=== PATIENT | female | born 1950 | race Caucasian/White ===

== ENCOUNTER 2019-10-10 11:10 | Outpatient (CLI) | payer MEDICARE, SELFPAY ==
--- NOTE | ~2019-10-10 | US_ITS ---
EXAMINATION: US soft tissue abdomen EXAM DATE: 10/10/2019 11:46 INDICATION: Hernia 2014. Soft tissue swelling, lump left supraumbilical region. TECHNIQUE: Multiple grayscale and Doppler images of the symptomatic anterior supraumbilical region we re obtained (by a technologist who performed the scan) and subsequently reviewed. Correlation is made to CT 10/11/18. FINDINGS: Scanning in the left supraumbilical region area of concern demonstrated no focal mass or abdominal wa ll defect. No hernia was identified on CT scan last year. No evidence of encapsulated lipoma. Abdomin al wall is unremarkable. IMPRESSION: 1. Unremarkable ultrasound exam. Reviewed, dictated and finalized at location A.
== END 2019-10-10 11:11 | disposition home or self-care (01) ==
PROVIDERS: PCP Nurse Practitioner Adult Health; Visit Provider Nurse Practitioner Adult Health
DX: R22.2 Localized swelling, mass and lump, trunk (principal)
CPT/HCPCS: 76705

== ENCOUNTER 2020-03-12 11:22 | Outpatient (CLI) | payer MEDICARE, SELFPAY ==
--- NOTE | ~2020-03-12 | XR_ITS ---
EXAMINATION: XR shoulder RT min 2V DATE: 03/12/2020 11:50 INDICATION: Right shoulder pain. TECHNIQUE: 4 views of right shoulder were obtained. COMPARISON: None. FINDINGS: Bone alignment is normal. No fracture. There is mild osteoarthritis of glenohumeral joint a nd acromioclavicular joint. IMPRESSION: 1. Mild polyarticular osteoarthritis. Reviewed, dictated and finalized at location A. ERY TECHNICIAN
== END 2020-03-12 11:23 | disposition home or self-care (01) ==
PROVIDERS: PCP Nurse Practitioner Adult Health; Visit Provider Nurse Practitioner Adult Health
DX: M19.011 Primary osteoarthritis, right shoulder (principal)
CPT/HCPCS: 73030

== ENCOUNTER 2020-07-25 08:30 | Outpatient (RCR) | payer MEDICARE, SELFPAY ==
[2020-06-06 12:29] VITALS: BP_SYST 170
--- NOTE | 2020-06-06 13:38 | PTOPEVAL ---
Thank you for referring Dulce Maria Quiros to [facility].? The patient is scheduled to be seen for therapy? 2 x/week for 6 weeks. Please review, sign, date and return this plan of care SUE. I agree with and certify that the following plan of care is medically necessary. Referring Physician Date Attending Provider: Parish Castro, Referring Provider: Parish Castro, *PT Outpatient Evaluation Start: 06/06/20 12:31 Freq: Status: Active Protocol: Document 06/06/20 12:29 DORI (Rec: 06/06/20 13:38 CAP [id number]) Therapy Assessment Status Assessment Status Assessment Status Evaluation Outpatient Past Medical History Past Medical History Source of Past Medical History Patient,Recalled from Previous Visit, Confirmed with Patient /Family Cardiovascular History Hx Hypertension Yes Respiratory History Hx Other Respiratory Disorders Yes: COVID Feb 2020 Genitourinary History Hx Kidney Stones Yes Musculoskeletal History Hx Back Pain Yes Hx Orthopedic Surgery Yes: [facility], left knee arthroscopic surgery Hx Osteoporosis Yes Endocrine History Hx Other Endocrine Disorders Yes: hyperglycemia Psychosocial History Hx Anxiety Yes Evaluation Information Problem Diagnosis right shoulder pain Onset Jan 2020 Cause unknown Additional Evaluation Detail previous treatment for left shoulder and neck- 3 yrs ago. Received therapy Subjective Information C/o right shoulder joint pain, Query Text:As Reported By Patient/ muscle pain, ache pain in the Family elbow. She reports her right hand will also have numbness when sleeping. She painted 3 rooms plus ceilings this summer. She applies heat at night to help her sleep. She reports limitations with reaching in all directions, IADL's, carrying activities and fine motor activities with the right UE. She has trouble with all aerospace mechanic. She is unable to paint her carias or manage a hammer as needed. She does assist with yardwork. She does not perform the
--- NOTE | 2020-07-04 09:25 | PTOPEVAL ---
Thank you for referring Dulce Maria Quiros to [facility].? Pt has been seen for 8 therapy visit to address right shoulder impairments. She is progressing towards her therapy goals with improved UE function, strength and range. She requires additional therapy 2x/wk x 3 additional wk to reach maximal potential. Please review, sign, date and return this plan of care SUE. I agree with and certify that the following plan of care is medically necessary. Referring Physician Date Attending Provider: Parish Castro, Referring Provider: Parish Castro, Physical Therapy progress note Problem Diagnosis right shoulder pain Onset Jan 2020 Cause unknown Additional Evaluation Detail previous treatment for left shoulder and neck- 3 yrs ago. Received therapy Subjective Information Reports the right shoulder Query Text:As Reported By Patient/ joint and muscle pain has Family improved. She continues to have soreness with increased activities or at the end of the day. Denies any right hand will also have numbness when sleeping, but some acheness at night. She is more aware of her posture and shoulder position with activities. She denies limitations with reaching in all directions for facility manager. But cont pain with donning clothes. Denies pain with overhead activities for ADL's. Cont pain with reaching act with exercise videos. 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 Pain Assessment Right Shoulder(s) Reported Pain Level 1 Pain Description Aching Pain Frequency Intermittent Lowest Pain Intensity 0 Greatest Pain Intensity 1 Pain Aggravating Factors ADL's,Exercise/Activity, Lifting Upper Extremity Range of Motion Left Shoulder Flexion - Active 170 Shoulder Extension - Active 50 Shoulder Abduction - Active 170 Shoulder Medial Rotation - Active T7 Query Text:Reach Behind the Back Shoulder Lateral Rotation - Active T2 Query Text:Reach Behind the Head Right Scapular: Retraction Hypomobile Scapular: Protraction Hypomobile Scapular Downward Rotation Hypomobile Scapular Upward Rotation
--- NOTE | 2020-07-25 09:10 | PTOPEVAL ---
Thank you for referring Dulce Maria Quiros to [facility].? Patient has received 14 therapy visit to address her right shoulder impairments. She has achieved her therapy goals a this time and is indep with her home program. Will D/C skilled therapy services at this time. Please review, sign, date and return this discharge SUE. I agree with and certify that the following plan of care is medically necessary. Referring Physician Date Attending Provider: Parish Castro, Referring Provider: Parish Castro, Physical Therapy Discharge Note Diagnosis right shoulder pain Onset Jan 2020 Cause unknown Additional Evaluation Detail previous treatment for left shoulder and neck- 3 yrs ago. Received therapy Subjective Information Reports the right shoulder Query Text:As Reported By Patient/ joint and muscle pain has Family improved. She denies any pain of the shoulder at rest and with activties. She is consistently performing her home program. Denies any problems with sleeping, reaching, carrying activities. She is able to tolerate overhead activities without limitations but only a small amout of stiffness. Denies any problems with ADL's or carrying objects. Pain Assessment Self Report Self Report Pain Level 0 Pain Score Pain Score 0: Self Report Upper Extremity Range of Motion Scapular/ Shoulder Range of Motion Left Shoulder Flexion - Active 175 Shoulder Extension - Active 60 Shoulder Abduction - Active 175 Shoulder Medial Rotation - Active T6 Query Text:Reach Behind the Back Shoulder Lateral Rotation - Active T2 Query Text:Reach Behind the Head Right Scapular: Retraction Hypomobile Scapular: Protraction Hypomobile Scapular Downward Rotation Hypomobile Scapular Upward Rotation Hypomobile Shoulder Flexion - Active 176 Shoulder Extension - Active 45 Shoulder Abduction - Active 170 Shoulder Medial Rotation - Active 85 Shoulder Medial Rotation - Active T7 Query Text:Reach Behind the Back Shoulder Lateral Rotation - Active 90 Shoulder Lateral Rotation - Active T2 Query Text:Reach Behind the Head Scapular/Shoulder Range of Motion inconsistent pain and soreness Comments of deltoid region with flex and abd Upper Extremity Muscle Strength Testing Scapular/Shoulder Left Scapular Retraction - Middle Trapezius 4
== END 2020-07-25 10:20 | disposition home or self-care (01) ==
LOC: ANHPT 08:30
PROVIDERS: PCP Nurse Practitioner Adult Health; Referring Provider Family Medicine; Visit Provider Family Medicine
DX: M25.511 Pain in right shoulder (principal)
CPT/HCPCS: 97110; 97140; 97162; 97530

== ENCOUNTER 2020-09-24 12:07 | Emergency (ER) | payer MEDICARE, SELFPAY ==
--- NOTE | ~2020-09-24 | XR_ITS ---
EXAMINATION: XR knee RT min 4V EXAM DATE: 09/24/2020 13:21 INDICATION: Right knee pain posteriorly, no known recent injury. TECHNIQUE: Right knee frontal, crosstable lateral, orthogonal oblique projections for interpretation . There is no prior study for comparison. FINDINGS: No evidence osteochondral defect or joint body in the right knee joint. There are no acut e fractures or dislocations identified. There is no subcutaneous gas. There is possible Esqueda's cyst . Small to moderate-sized joint effusion. There are no radiopaque foreign bodies. Mild to moderate tricompartmental primary osteoarthritis. IMPRESSION: 1. Right knee exam without acute osseous findings. 2. Small to moderate joint effusion. 3. Possible Esqueda's cyst. 4. Mild to moderate osteoarthritis. Reviewed, dictated and finalized at location A.
[2020-09-24 12:15] VITALS: BP 180/80; PULSE 75; RESP 16; TEMP 36.3; O2SAT 100
--- NOTE | 2020-09-24 13:39 | ED.GENADULT ---
HPI - General Adult General Chief complaint: Extremity Injury, Lower Stated complaint: right knee pain/swelling Source: patient Mode of arrival: ambulatory Limitations: no limitations History of Present Illness HPI narrative: This is a 70-year-old female who presents with complaints of right knee pain. She is a very poor historian. States she has a history of arthritis in both knees and previously underwent arthroscopic surgery in the left knee in the past per Dr. Ga. It sounds like she has some chronic bilateral knee pain but noted worsening pain in the past three days. She states she has been going up and down a ladder but cannot identify any recent injury. She states pain is constant, 9/10 in severity and without descriptive quality. Pain is in the anterior and posterior aspect of the knee. She also reports a tightness in the anterolateral aspect of the right lower leg. In the past she has some CAT scan her abdomen pelvis and there was a concern for DVT in the gonadal vein. She was started on Xarelto and vascular evaluated her. She had an MRI/MRA at [facility] which was negative for thrombosis. Therefore anticoagulation was discontinued. She reports decreased range of motion in the right knee. She has been using a cane to ambulate. She tried taking ibuprofen 800mg without much improvement in her symptoms thereafter. Related Data Home Medications Medication Instructions Recorded Confirmed diclofenac sodium 1 g TOPICAL QID 09/24/20 09/24/20 fluoxetine 1 mg PO DAILY 09/24/20 09/24/20 lorazepam 1 mg PO BID 09/24/20 09/24/20 quinapril 1 mg PO DAILY 09/24/20 09/24/20 quinapril-hydrochlorothiazide 1 tablet PO DAILY 09/24/20 09/24/20 rosuvastatin 1 mg PO DAILY 09/24/20 09/24/20 Allergies Allergy/AdvReac Type Severity Reaction Status Date / Time niacin Allergy Unknown Verified 09/24/20 12:35 Review of Systems Review of Systems: Narrative: CONSTITUTIONAL: Denies fever, chills, or sweats. EYES: Denies visual changes, redness, or discharge. ENT: Denies rhinorrhea, congestion, sore throat, or otalgia. CARDIOVASCULAR: Denies chest pain, palpitations, or edema. RESPIRATORY: Denies cough or dyspnea. GASTROINTESTINAL: Denies abdominal pain, nausea, vomiting, or diarrhea. GENITOURINARY: Denies dysuria or hematuria. SKIN: Denies rash or itching. MUSCULOSKELETAL: Reports right knee pain, and right calf. Denies back pain. NEUROLOGIC: Denies headache, numbness, dizziness, or weakness. PSYCHIATRIC: Denies anxiety or depression. [facility] Past Medical History Medical History (Updated 09/24/20 @ 14:02 by AMI Hayden, ) Hyperlipidemia Hypertension Surgical History Surgical History S/P arthroscopic surgery of left knee Family History Family History Mother Family history of premature coronary heart disease Hypertension Cerebrovascular accident Family history of Alzheimer's disease Family history of diabetes mellitus in first degree relative Social History Social History Smoking status: Former smoker Alcohol intake: current Gender identity (if verbalized by the patient): Female Exam Narrative: Exam Narrative: GENERAL: Well-appearing, well-nourished, and in no acute distress. HEAD: Normocephalic, atraumatic. EYES: PERRLA and EOMI. ENT: Nares clear, no rhinorrhea or epistaxis. Mucous membranes moist. Oropharynx without tonsillar hypertrophy exudate or other lesions. Bilateral TMs pearly ramos nonbulging NECK: Supple. No adenopathy or masses. No carotid bruits or JVD CHEST: Clear to auscultation. No respiratory distress. No wheezes rales or rhonchi HEART: Regular rate and rhythm. No murmur heard. Normal peripheral pulses. ABDOMEN: Soft, nontender, nondistended, normal active bowel sounds. EXTREMITIES: Decreased active range of catrachito
== END 2020-09-24 14:21 | disposition short-term general hospital (02) ==
PROVIDERS: Emergency Provider Nurse Practitioner; PCP Nurse Practitioner Adult Health
DX: M25.561 Pain in right knee (principal); M25.461 Effusion, right knee; M71.21 Synovial cyst of popliteal space [Baker], right knee; Z87.891 Personal history of nicotine dependence; E78.5 Hyperlipidemia, unspecified; I10 Essential (primary) hypertension
CPT/HCPCS: 73564; 99213; G0463

== ENCOUNTER 2020-09-24 15:01 | Emergency (ER) | payer MEDICARE, SELFPAY ==
--- NOTE | ~2020-09-24 | US_ITS ---
US venous doppler LE RT DATE: 09/24/2020 15:33 INDICATION: Right lower extremity pain TECHNIQUE: Real-time and color flow imaging and Doppler analysis of the veins of the right lower extr emity COMPARISON: None FINDINGS: The right greater saphenous vein is patent. There is spontaneous and phasic flow and normal augmentation and color flow signal and normal compression of the deep veins of the right lower extre mity. There is a 15 x 75 x 62 mm fluid structure at the posterior aspect of the knee, likely a large poplit eal cyst. Differential diagnosis includes hematoma. IMPRESSION: No evidence of deep venous thrombosis of the right lower extremity Probable large Esqueda's cyst or less likely hematoma at posterior aspect of the knee Reviewed, dictated and finalized at Location A. Reviewed, dictated and finalized at location B.
[2020-09-24 15:16] VITALS: BP 206/100; PULSE 80; RESP 18; TEMP 36.7; O2SAT 100
--- NOTE | 2020-09-24 15:22 | ED.EXTPRO ---
HPI - Extremity Problem General Chief complaint: Extremity Problem,Nontraumatic Stated complaint: knee pain possible dvt vs cyst Time Seen by Provider: 09/24/20 15:11 History of Present Illness HPI Narrative: 70 yo female presents from urgent care for knee pain. She reports that she has chronic pain from arthritis. She has been more active recently and the pain has been worse. Yesterday she was walking and she felt a pop in the right knee and the pain again worsened. She was seen at urgent care and had an x-ray showing a cyst. She was sent here for concern about a possible DVT. No CP, SOB. Related Data Home Medications Medication Instructions Recorded Confirmed diclofenac sodium 1 g TOPICAL QID 09/24/20 09/24/20 fluoxetine 1 mg PO DAILY 09/24/20 09/24/20 lorazepam 1 mg PO BID 09/24/20 09/24/20 quinapril 1 mg PO DAILY 09/24/20 09/24/20 quinapril-hydrochlorothiazide 1 tablet PO DAILY 09/24/20 09/24/20 rosuvastatin 1 mg PO DAILY 09/24/20 09/24/20 Allergies Allergy/AdvReac Type Severity Reaction Status Date / Time niacin Allergy Unknown Verified 09/24/20 12:35 Review of Systems Review of Systems: All systems reviewed & are unremarkable except as noted in HPI and below Constitutional: Constitutional: Denies chills and Denies fever(s) Cardiovascular: Cardiovascular: Denies chest pain Respiratory: Respiratory: Denies dyspnea Gastrointestinal: Gastrointestinal: Denies nausea PMFSH Past Medical History Medical History Hyperlipidemia Hypertension Surgical History Surgical History S/P arthroscopic surgery of left knee Family History Family History Mother Family history of premature coronary heart disease Hypertension Cerebrovascular accident Family history of Alzheimer's disease Family history of diabetes mellitus in first degree relative Social History Social History Smoking status: Former smoker Alcohol intake: current Gender identity (if verbalized by the patient): Female Exam Const: General: no acute distress and alert Orientation/consciousness: patient oriented x3 HENMT: Head: normal to inspection Resp: Effort & Inspection: normal respiratory effort Auscultation: clear to auscultation bilaterally Cardio: Rate: regular rate Rhythm: regular rhythm Other: DP 2+ and symetrical Skin: General skin exam: normal color Neuro: General: patient oriented x3 and moves all extremities Speech: normal speech Extrem: Other: moderate swelling to right knee with palpable effusion Course Vital Signs Vital signs: Vital Signs Temperature 36.7 C 09/24/20 15:16 Pulse Rate 80 09/24/20 15:16 Respiratory Rate 18 09/24/20 15:16 Blood Pressure 206/100 H 09/24/20 15:16 Pulse Oximetry 100 09/24/20 15:16 Temperature 36.7 C 09/24/20 15:16 Pulse Rate 80 09/24/20 17:20 Respiratory Rate 18 09/24/20 17:20 Blood Pressure 172/80 H 09/24/20 17:20 Pulse Oximetry 99 09/24/20 17:20 MDM - Extremity (Nontraumatic) MDM Narrative Medical decision making narrative: She has follow up with orhto in a few days. Imaging Data Radiologist's impression: ITS Impressions Venous Doppler Study 09/24/20 15:34 IMPRESSION: No evidence of deep venous thrombosis of the right lower extremity Probable large Esqueda's cyst or less likely hematoma at posterior aspect of the knee Discharge Plan Discharge Clinical Impression: Effusion of knee joint right, Synovial cyst of popliteal space [Esqueda], right knee Patient Disposition: Home, Self-Care Condition: Stable Instructions: Knee Pain (ED) Prescriptions: New tramadol 50 mg tablet 50 mg PO Q6H PRN (Reason: pain) Qty: 15 RF: 0 No Action fluoxetine 40 mg capsule 1 mg PO D
[2020-09-24] MEDS: traMADol HCL (*CRX) 50 MG TABLET PO (17:11)
[2020-09-24 17:20] VITALS: BP 172/80; PULSE 80; RESP 18; O2SAT 99
== END 2020-09-24 17:22 | disposition home or self-care (01) ==
PROVIDERS: Emergency Provider Emergency Medicine; PCP Nurse Practitioner Adult Health
DX: M71.21 Synovial cyst of popliteal space [Baker], right knee (principal); M25.461 Effusion, right knee; M79.661 Pain in right lower leg; E78.5 Hyperlipidemia, unspecified; I10 Essential (primary) hypertension; M19.90 Unspecified osteoarthritis, unspecified site; Z87.891 Personal history of nicotine dependence
CPT/HCPCS: 73564; 93971; 99284; A9270

== ENCOUNTER 2020-10-15 08:19 | Outpatient (CLI) | payer MEDICARE, SELFPAY ==
--- NOTE | ~2020-10-15 | US_ITS ---
US retroperitoneal comp 10/15/2020 08:52 Procedure: Realtime transabdominal ultrasound of the kidneys and bladder. Indication: Hydronephrosis. Comparison: 10/10/2019 Findings: Renal echotexture is normal bilaterally without contour deforming mass or renal calculus. T here is mild left hydronephrosis. The right kidney measures 10.7 cm and left kidney measures 10.3 cm. Bladder within normal limits. Impression: 1: Mild left hydronephrosis. Reviewed, dictated and finalized at location D. Impression: 1: Mild left hydronephrosis.
== END 2020-10-15 08:20 | disposition home or self-care (01) ==
PROVIDERS: PCP Nurse Practitioner Adult Health; Visit Provider Urology
DX: N13.30 Unspecified hydronephrosis (principal)
CPT/HCPCS: 76770

== ENCOUNTER 2020-10-16 12:36 | Outpatient (CLI) | payer MEDICARE, SELFPAY ==
--- NOTE | ~2020-10-16 | NM_ITS ---
EXAMINATION: ALVINO leggett renal scan DATE: 10/16/2020 13:33 INDICATION: Hydronephrosis TECHNIQUE: 7.9 mCi Tc-99m MAG3 was administered IV. 40 mg furosemide was administered IV immediately afterward. The patient was scanned in the supine position. A posterior abdominal radionuclide angiog narinder was obtained. A subsequent time course of static images of the kidneys, ureters, and bladder was obtained. COMPARISON: Ultrasound dated 10/15/2020 FINDINGS: The posterior abdominal radionuclide angiogram and sequential static images show normal size, positio n, and morphology of the kidneys. Peak renal parenchymal uptake was 2.0 min in left kidney and 2.0 mi n in right kidney (normal peak 3-5 minutes). The relative early renal uptake was 45% on the left and 55% on the right (<40% is abnormal). No abnormalities of the ureters or bladder are seen. T1/2 for clearance of activity from the left kidney and proximal collecting system was 5.5 minutes. T1/2 for clearance of activity from the right kidney and proximal collecting system was 6.7 minutes. Notes on interpretation: T1/2 <10 minutes is normal, 10-15 minutes is low grade obstruction of questi onable clinical significance, 15-20 minutes is partial obstruction that is likely clinically signific ant, >20 minutes is high grade obstruction. Note that false positives may be seen with supine positio jorge, dehydration, severely dilated nonobstructed kidney, atonic collecting system, poor renal functi on, and chronic furosemide use. IMPRESSION: 1. Symmetric kidney function. 2. No delay in contrast clearance from either kidney to suggest fixed obstruction. Reviewed, dictated and finalized at location A. IMPRESSION: 1. Symmetric kidney function. 2. No delay in contrast clearance from either kidney to suggest fixed obstruct ion.
== END 2020-10-16 12:37 | disposition home or self-care (01) ==
LOC: ANHIMG 12:38
PROVIDERS: PCP Nurse Practitioner Adult Health; Visit Provider Urology
DX: N13.30 Unspecified hydronephrosis (principal)
CPT/HCPCS: 78708; A9562; J1940

== ENCOUNTER 2021-04-29 07:50 | Outpatient (CLI) | payer MEDICARE, SELFPAY ==
--- NOTE | ~2021-04-29 | US_ITS ---
US thyroid INDICATION: Hyperbilirubinemia. Disorder of the thyroid gland. TECHNIQUE: Real-time sonographic images of the thyroid gland were obtained. COMPARISON: No prior studies for comparison. FINDINGS: The right thyroid lobe measures 3.9 x 1.6 x 1.4 cm. The left thyroid lobe measures 3.6 x 1 .2 x 1.2 cm. There is normal echotexture and echogenicity throughout the thyroid gland. There is a be nign 6 mm left thyroid cysts. Normal vascular flow is present. IMPRESSION: 1. Benign 6 mm left thyroid cyst. Otherwise, unremarkable thyroid ultrasound. Reviewed, dictated and finalized at location A. LEUM MECHANIC
--- NOTE | ~2021-04-29 | US_ITS ---
US right upper quadrant INDICATION: Hyperbilirubinemia PROCEDURE: Realtime right upper abdominal ultrasound. COMPARISON: No prior studies for comparison. FINDINGS: The pancreas is normal without focal mass or pancreatic ductal dilation. Liver echotexture is normal without focal mass or intrahepatic biliary dilatation. There is normal directional flow i n the portal vein. Gallbladder is surgically absent. Common bile duct measures 7 mm. IMPRESSION: 1: Unremarkable limited abdominal ultrasound postcholecystectomy. Reviewed, dictated and finalized at location A. PL SQL DEVELOPER
== END 2021-04-29 07:51 | disposition home or self-care (01) ==
LOC: ANHIMG 07:53
PROVIDERS: PCP Nurse Practitioner Adult Health; Visit Provider Nurse Practitioner Adult Health
DX: E80.6 Other disorders of bilirubin metabolism (principal); E07.9 Disorder of thyroid, unspecified; E04.1 Nontoxic single thyroid nodule
CPT/HCPCS: 76536; 76705

== ENCOUNTER 2021-12-19 15:03 | Outpatient (CLI) | payer MEDICARE, SELFPAY ==
--- NOTE | ~2021-12-19 | DEXA_ITS ---
Bone Density Report Name: CHINA FORD Age: 71 Sex: Female Ethnicity: White Date of : 1950 Indication: postmenopausal; screening for osteoporosis; height loss; Referring Provider: LEONA, NELSON Study: Bone densitometry was performed. Exam Date: December 19, 2021 Accession number: [id number] Bone Density: Region BMD T-score Z-score Classification AP Spine(L1, L2, L3) 1.130 1.0 3.1 Normal Femoral Neck (Left) 0.619 -2.1 -0.3 Osteopenia Total Hip (Left) 0.859 -0.7 0.8 Normal Femoral Neck (Right) 0.674 -1.6 0.2 Osteopenia Total Hip (Right) 0.903 -0.3 1.2 Normal Total Hip Mean 0.881 -0.5 1.0 Normal World Health Organization criteria for BMD impression classify patients as: Normal (T-score at or above -1.0), Osteopenia (T-score between -1.0 and -2.5), or Osteoporosis (T-score at or below -2.5). 10-year Fracture Risk(1): Major Osteoporotic Fracture 11% Hip Fracture 2.2% Reported Risk Factors: [place] (), Neck BMD=0.619, BMI=30.1 (1) FRAX(R) Version 3.08. Fracture probability calculated for an untreated patient. Fracture probability may be lower if the patient has received treatment. Clinical Information Provided by Patient: Has used the following medications: Vitamin D, Calcium Patient maximum height was 59.54 Menopause Age: 57 Drinks caffeinated beverages Onset of menses at age 11 Number of children 4 Impression: The patient has low bone mass, based on the Left Femoral Neck T-score. The patient has an estimated ten-year risk of hip fracture of 2.2% and an estimated ten-year risk of major fracture of 11%, based on the WHO FRAX algorithm. Discussion: BONE DENSITY IS LOW AT ONE OR MORE SKELETAL SITES. This patient's lowest T-score is low at one or more skeletal sites. It meets the World Health Organization's (WHO) criteria for ?low bone mass? (T-score between -1.0 and -2.5). The patient's 10-year risk of fracture as calculated by FRAX is less than the threshold where pharmacological therapy is recommended by the National Osteoporosis Foundation (NOF). However, all treatment decisions require clinical judgment and consideration of individual patient factors, including patient preferences, comorbidities, previous drug use, risk factors not captured in the FRAX model (e.g., frailty, falls, vitamin D deficiency, increased bone turnover, interval significant decline in bone density) and possible under or overestimation of fracture risk by FRAX. The patient should follow a healthful lifestyle (good nutrition with adequate calcium and vitamin D, and appropriate weight-bearing exercise). Follow-Up: Consider repeating this study in 2 to 3 years to reassess this patient's status, or sooner if there is some new clinical indication. Reported by: [facility] on 12/19/2021 3:29:00 PM.
== END 2021-12-19 15:04 | disposition home or self-care (01) ==
LOC: ANHIMG 15:07
PROVIDERS: PCP Internal Medicine; Visit Provider Internal Medicine
DX: Z78.0 Asymptomatic menopausal state (principal); M85.852 Other specified disorders of bone density and structure, left thigh; M85.851 Other specified disorders of bone density and structure, right thigh
CPT/HCPCS: 77080